=== PATIENT | male | born 1965 | race Caucasian/White ===

== ENCOUNTER 2016-08-21 13:57 | Inpatient (IN) | payer OTHER ==
[~2016-08-21 13:57] MED LIST: ANTIBIOTIC PO; BACTRIM DS TAB1 EAC2 PO; CULTURELLE1 EAC1 PO; KEFLEX500 M4 PO; LOTREL 5/20 MG1 CAP PO; LOTRIMIN AF12 GM TOP; MIRALAX17 G1 PO; OXYCODONE HCL5 MG; PREDNISONE20 M1 PO; ULTRAM50 MG PO; VALACYCLOVIR1000 M1 PO; VITAMIN D2000 UNIT PO
[2016-08-21] MEDS ORDERED: MIRALAX17 G2 PO (14:31)
[2016-08-21] MEDS ORDERED: SENOKOT-S TABL1 EACH PO (14:31)
[2016-08-21 17:27] LABS: BASO % 0.2 % (0-2); EOS % 3.3 % (0-7); EOSINOPHIL ABSOLUTE COUNT 0.3 tho/cmm (0.0-0.7); HCT-HEMATOCRIT 43.1 % (36.0-53.5); HGB-HEMOGLOBIN 14.5 gm/dl (13.5-17.0); IMMATURE GRANULOCYTES ABSOLUTE 0.02 tho/cmm (0-0.03); IMMATURE GRANULOCYTES PERCENT 0.2 % (0-0.3); LYMPH % 15.2 % (20-45); LYMPH ABSOLUTE COUNT 1.3 tho/cmm (0.8-4.5); MCH (MEAN CORPUSCULAR HGB) 28.8 pg (28.0-32.0); MCHC MEAN CORPUSCULAR HGB CONC 33.6 % (32.0-36.0); MCV (MEAN CELL VOLUME) 85.5 fl (82.0-96.0); MEAN PLATELET VOLUME 9.4 cmc (9.4-12.4); MONO % 11.5 % (0-12); NEUTROPHIL ABSOLUTE COUNT 6.1 tho/cmm (1.6-8.0); NEUTROPHIL-AUTOMATED 6.1 tho/cmm (1.6-8.0); NEUTROPHILS % 69.6 % (40-80); PLATELET COUNT 223 tho/cmm (150-450); RED BLOOD COUNT 5.04 mil/cmm (4.40-5.70); RED CELL DISTRIBUTION WIDTH 13.7 % (12.4-16.4); WHITE BLOOD COUNT 8.8 tho/cmm (4.0-10.0)
[2016-08-21 17:43] LABS: ALB/GLOB RATIO 0.9 (0.8-2.0); ALBUMIN 3.7 g/dl (3.5-5.0); ALKALINE PHOSPHATASE 78 U/L (33-138); ALT/SGPT 34 U/L (12-78); AMYLASE 21 U/L (20-90); ANION GAP 13 mmol/L (0-20); AST/SGOT 17 U/L (10-40); BILIRUBIN,TOTAL 0.8 mg/dl (0.0-1.5); BLOOD UREA NITROGEN 15 mg/dl (6-24); CALCIUM 8.8 mg/dl (8.5-10.5); CARBON DIOXIDE-VENOUS 26 mmol/L (22-32); CHLORIDE 103 mmol/l (96-110); CREATININE 1.06 mg/dl (0.60-1.30); GLUCOSE 120 mg/dL (70-110); LIPASE 66 U/L (73-393); POTASSIUM 3.8 mmol/L (3.7-5.1); SODIUM 138 mmol/L (135-145); eGFR VALUE FOR BLACK >90 mL/Min
[2016-08-22 05:26] LABS: ANION GAP 13 mmol/L (0-20); BLOOD UREA NITROGEN 14 mg/dl (6-24); CALCIUM 8.6 mg/dl (8.5-10.5); CARBON DIOXIDE-VENOUS 23 mmol/L (22-32); CHLORIDE 107 mmol/l (96-110); CREATININE 0.98 mg/dl (0.60-1.30); GLUCOSE 143 mg/dL (70-110); MAGNESIUM 2.1 mg/dl (1.8-2.6); PHOSPHOROUS 3.2 mg/dl (2.5-4.9); POTASSIUM 3.9 mmol/L (3.7-5.1); SODIUM 139 mmol/L (135-145); eGFR VALUE FOR BLACK >90 mL/Min
[2016-08-23] MEDS ORDERED: LOTREL 5-20 MG1 EACH PO (10:07)
[2016-08-23] MEDS ORDERED: XIFAXAN550 M1 PO (10:08)
== END 2016-08-23 12:55 | DRG 389 ==
LOC: 5WD 13:57
PROVIDERS: Hospitalist; Surgery; ADMIT Family Medicine
PROC: 5A09457 Assistance with Respiratory Ventilation, 24-96 Consecutive Hours, Continuous Positive Airway Pressure (ICD-10-PCS; principal; 2016-08-21)
PROC: 05HF33Z Insertion of Infusion Device into Left Cephalic Vein, Percutaneous Approach (ICD-10-PCS; 2016-08-21)
PROC: B54NZZA Ultrasonography of Left Upper Extremity Veins, Guidance (ICD-10-PCS; 2016-08-21)
DX: K56.69 Other intestinal obstruction (principal); Z68.43 Body mass index [BMI] 50.0-59.9, adult; Z99.81 Dependence on supplemental oxygen; E66.01 Morbid (severe) obesity due to excess calories; G47.33 Obstructive sleep apnea (adult) (pediatric); I73.9 Peripheral vascular disease, unspecified; K59.00 Constipation, unspecified; Z96.651 Presence of right artificial knee joint; G51.0 Bell's palsy; R73.03 Prediabetes
CPT/HCPCS: C1751; J2765; J7030